=== PATIENT | male | born 1990 | race Caucasian/White ===

== ENCOUNTER 2022-09-15 16:36 | Emergency (ER) | payer SELFPAY ==
[2022-09-15 16:38] VITALS: BP 140/94; PULSE 90; RESP 16; TEMP 36.5; O2SAT 98; BMI 29.8
--- NOTE | 2022-09-15 17:09 | RAD_ITS ---
STUDY: X-RAY - LUMBAR SPINE REASON FOR EXAM: Male, 32 years old. Injury/Pain TECHNIQUE: AP and lateral view(s) of the lumbar spine were obtained. COMPARISON: None FINDINGS: Normal lumbar lordosis. There is no substantial scoliosis. There is a normal alignment of the vertebrae. Normal vertebral bodies and endplates. Normal disc space heights. The soft tissue structures are unremarkable. RAD/Lumbar Spine 2 or 3 Views IMPRESSION: Normal x-ray examination of the lumbar spine. Electronically Signed: Jaspreet Servin MD at 18:17 EDT ,
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
--- NOTE | 2022-09-15 17:47 | RAD_ITS ---
STUDY: X-RAY - CERVICAL SPINE REASON FOR EXAM: Male, 32 years old. Injury/Pain TECHNIQUE: 3 view(s) of the cervical spine were obtained. COMPARISON: None FINDINGS: Normal anterior atlantoaxial articulation. Normal odontoid process. Straightening of normal lordotic curvature possibly due to muscle spasm or positioning artifact. Normal vertebral bodies and endplates. Normal disc space heights. Normal visualized intervertebral neuroforamina. The soft tissue structures are unremarkable. RAD/Cerv Spine 2 or 3 Views IMPRESSION: Straightening of normal lordotic curvature of uncertain etiology or clinical significance otherwise normal x-ray examination of the visualized cervical spine. Electronically Signed: Jaspreet Servin MD at 18:17 EDT ,
== END 2022-09-15 18:35 | disposition home or self-care (01) ==
PROVIDERS: Emergency Provider Emergency Medicine; Visit Provider Emergency Medicine
DX: S39.012A Strain of muscle, fascia and tendon of lower back, initial encounter (principal); S50.10XA Contusion of unspecified forearm, initial encounter; S16.1XXA Strain of muscle, fascia and tendon at neck level, initial encounter; V43.52XA Car driver injured in collision with other type car in traffic accident, initial encounter
CPT/HCPCS: 72040; 72100; 99282